=== PATIENT | male | born 1975 | race Caucasian/White ===

== ENCOUNTER 2018-04-17 21:59 | Inpatient (IN) | payer OTHER ==
[2018-04-17] MEDS: SODIUM CHLORIDE 0.9% 1L BAG IV* (22:50)
[2018-04-17] MEDS: ONDANSETRON 4 MG INJ IV (22:50)
[2018-04-17 22:52] LABS: WHITE BLOOD COUNT 27.6 10^3/ul (4.8-10.8)
[2018-04-17 22:52] LABS: ABNORMAL IP MESSAGE 1; HEMATOCRIT 48.8 % (42.0-52.0); HEMOGLOBIN 16.5 g/dl (14.0-18.0); MEAN CORPUSCULAR HEMOGLOBIN 32.3 pg (29.0-33.0); MEAN CORPUSCULAR HGB CONC 33.8 g/dl (32.0-37.0); MEAN CORPUSCULAR VOLUME 95.5 fl (82.0-101.0); MEAN PLATELET VOLUME 10.6 fl (7.4-10.4); PLATELET COUNT 395 10^3/UL (140-415); POSITIVE DIFF @See below; RED BLOOD COUNT 5.11 10^6/ul (4.70-6.10); RED CELL DISTRIBUTION WIDTH 13.1 % (11.5-14.5)
[2018-04-17 23:11] LABS: INR 0.94; PROTIME 12.7 Sec (11.9-14.9)
[2018-04-17 23:12] LABS: PARTIAL THROMBOPLASTIN TIME 27.9 Sec (25.0-35.0)
[2018-04-17 23:13] LABS: ALANINE AMINOTRANSFERASE 18 IU/L (13-69); ALBUMIN 5.2 g/dl (3.3-4.9); ALBUMIN/GLOBULIN RATIO 1.73; ALKALINE PHOSPHATASE 134 IU/L (42-121); ANION GAP 33 (8-16); ASPARTATE AMINO TRANSFERASE 36 IU/L (15-46); BILIRUBIN,INDIRECT 1.5 mg/dl (0-1.1); BILIRUBIN,TOTAL 1.5 mg/dl (0.2-1.3); BLOOD UREA NITROGEN 20 mg/dl (7-20); CALCIUM 9.7 mg/dl (8.4-10.2); CHLORIDE 103 mmol/L (97-110); CREATININE 1.08 mg/dl (0.61-1.24); POTASSIUM 5.3 mmol/L (3.5-5.1); SODIUM 139 mmol/L (135-144); TOTAL PROTEIN 8.2 g/dl (6.1-8.1)
[2018-04-17 23:14] LABS: ADD MAN DIFF? YES
[2018-04-17 23:18] LABS: CARBON DIOXIDE 8 mmol/L (21-31); GLUCOSE 548 mg/dl (70-220)
[2018-04-17] MEDS: morphine 2 MG INJ IV (23:22)
[2018-04-17 23:24] LABS: TROPONIN-I < 0.010 ng/ml (0.000-0.120)
[2018-04-17] MEDS: SOD CHLORIDE 0.9% 2,000 ML IV (23:40)
[2018-04-17 23:43] LABS: ADD UMIC NO; UR ASCORBIC ACID NEGATIVE (NEGATIVE); UR BILIRUBIN (Dip) NEGATIVE (NEGATIVE); UR BLOOD (Dip) NEGATIVE (NEGATIVE); UR CLARITY CLEAR (CLEAR); UR COLOR STRAW (YELLOW); UR GLUCOSE (Dip) 3+ mg/dL (NEGATIVE); UR KETONES (Dip) 2+ mg/dL (NEGATIVE); UR LEUKOCYTE ESTERASE (Dip) NEGATIVE Leu/ul (NEGATIVE); UR NITRITE (Dip) NEGATIVE (NEGATIVE); UR SPECIFIC GRAVITY (Dip) 1.016 (1.003-1.030); UR TOTAL PROTEIN (Dip) NEGATIVE (NEGATIVE); UR UROBILINOGEN (Dip) NEGATIVE (NEGATIVE)
[2018-04-17 23:50] LABS: LACTIC ACID 6.8 mmol/L (0.5-2.0)
[2018-04-18] MEDS: INSULIN HUMAN REGULAR 100 UNIT in SOD CHLORIDE 0.9% 99 ML IV ×2 (00:04→10:56)
[2018-04-18] MEDS: SODIUM CHLORIDE 0.9% 1L BAG IV* (00:10)
[2018-04-18] MEDS: CEFEPIME 2GM/50 ML (PMX) 50 ML IVPB (00:10)
[2018-04-18] MEDS: VANCOMYCIN 1 GM (PMX) 250 ML IVPB (00:19)
[2018-04-18] MEDS: KETOROLAC 30 MG INJ IV (00:49)
[2018-04-18 01:06] LABS: LACTIC ACID 5.2 mmol/L (0.5-2.0)
[2018-04-18] MEDS ORDERED: DEXTROSE 50% 50 ML SYRINGE IV ×2 (01:30)
[2018-04-18] MEDS ORDERED: VANCOMYCIN IV PER PHARMACY XX (01:30)
[2018-04-18] MEDS ORDERED: morphine 2 MG INJ IV (01:30)
[2018-04-18] MEDS ORDERED: ONDANSETRON 4 MG INJ IV (01:30)
[2018-04-18] MEDS: ACCU-CHEK XX ×25 (01:30→22:36)
[2018-04-18] MEDS: SOD CHLORIDE 0.9% 1,000 ML IV ×2 (01:45→03:05)
[2018-04-18] MEDS: SOD CHLORIDE 0.9% 100 ML ×2 (01:47→02:01)
[2018-04-18] MEDS: IOHEXOL 300MG/ML 150 ML BTL ×2 (01:47→02:00)
[2018-04-18 02:07] LABS: ALANINE AMINOTRANSFERASE 23 IU/L (13-69); ALBUMIN 3.6 g/dl (3.3-4.9); ALBUMIN/GLOBULIN RATIO 1.38; ALKALINE PHOSPHATASE 87 IU/L (42-121); ANION GAP 20 (8-16); ASPARTATE AMINO TRANSFERASE 25 IU/L (15-46); BLOOD UREA NITROGEN 19 mg/dl (7-20); CALCIUM 7.4 mg/dl (8.4-10.2); CARBON DIOXIDE 10 mmol/L (21-31); CHLORIDE 118 mmol/L (97-110); GLUCOSE 340 mg/dl (70-220); POTASSIUM 4.8 mmol/L (3.5-5.1); SODIUM 143 mmol/L (135-144); TOTAL PROTEIN 6.2 g/dl (6.1-8.1)
[2018-04-18 02:29] LABS: BASOPHIL #M 0.2 10^3/ul (0.0-0.0); BASOPHILS % (M) 1 % (0-2); GIANT THROMBO% (M) 2 % (0-0); LYMPHOCYTES #M 1.6 10^3/ul (0.8-2.9); LYMPHOCYTES % (M) 6 % (15-51); MONOCYTE #M 3.8 10^3/ul (0.3-0.9); MONOCYTES % (M) 14 % (0-11); PLATELET ESTIMATE NORMAL; POIKILOCYTOSIS 1+ (0-0); SEGMENTED NEUTROPHILS (M) % 79 % (39-77); SMUDGE%M 12 % (0-0)
[2018-04-18 02:44] LABS: HEMOGLOBIN A1C 6.6 % (0-5.9)
[2018-04-18 02:56] LABS: C-REACTIVE PROTEIN < 0.5 mg/dl (0.0-0.9)
[2018-04-18] MEDS: DEXTROSE 5%-0.45% NACL 1,000 ML IV ×2 (04:02→11:47)
[2018-04-18 04:21] LABS: PHOSPHORUS 3.6 mg/dl (2.5-4.9)
[2018-04-18 04:21] LABS: GLUCOSE, FASTING 336 mg/dl (70-110)
[2018-04-18] MEDS: PIPER-TAZO 3.375 GM IV (PMX) 100 ML IVPB ×3 (05:34→18:58)
[2018-04-18] MEDS: PANTOPRAZOLE 40 MG INJ IV (05:34)
[2018-04-18 06:02] LABS: LACTIC ACID 1.3 mmol/L (0.5-2.0)
[2018-04-18 06:07] LABS: CREATINE KINASE 131 IU/L (23-200)
[2018-04-18 06:13] LABS: ALANINE AMINOTRANSFERASE 25 IU/L (13-69); ALBUMIN 3.1 g/dl (3.3-4.9); ALBUMIN/GLOBULIN RATIO 1.24; ALKALINE PHOSPHATASE 63 IU/L (42-121); ANION GAP 14 (8-16); ASPARTATE AMINO TRANSFERASE 19 IU/L (15-46); BLOOD UREA NITROGEN 18 mg/dl (7-20); CALCIUM 7.7 mg/dl (8.4-10.2); CARBON DIOXIDE 15 mmol/L (21-31); CHLORIDE 117 mmol/L (97-110); CREATININE 0.85 mg/dl (0.61-1.24); GLUCOSE 198 mg/dl (70-220); POTASSIUM 4.4 mmol/L (3.5-5.1); SODIUM 142 mmol/L (135-144); TOTAL PROTEIN 5.6 g/dl (6.1-8.1)
[2018-04-18 06:39] LABS: HEMOGLOBIN A1C 6.7 % (0-5.9)
[2018-04-18] MEDS: VANCOMYCIN 1.25 GM in SOD CHLORIDE 0.9% 250 ML IVPB ×2 (08:53→21:06)
[2018-04-18 10:44] LABS: ALANINE AMINOTRANSFERASE 30 IU/L (13-69); ALBUMIN 2.9 g/dl (3.3-4.9); ALBUMIN/GLOBULIN RATIO 1.11; ALKALINE PHOSPHATASE 59 IU/L (42-121); ANION GAP 12 (8-16); ASPARTATE AMINO TRANSFERASE 21 IU/L (15-46); BILIRUBIN,INDIRECT 1.8 mg/dl (0-1.1); BILIRUBIN,TOTAL 1.8 mg/dl (0.2-1.3); BLOOD UREA NITROGEN 18 mg/dl (7-20); CALCIUM 7.7 mg/dl (8.4-10.2); CARBON DIOXIDE 17 mmol/L (21-31); CHLORIDE 117 mmol/L (97-110); CREATININE 0.77 mg/dl (0.61-1.24); GLUCOSE 110 mg/dl (70-220); POTASSIUM 3.9 mmol/L (3.5-5.1); SODIUM 142 mmol/L (135-144); TOTAL PROTEIN 5.5 g/dl (6.1-8.1)
[2018-04-18 10:46] LABS: LACTIC ACID 1.1 mmol/L (0.5-2.0)
[2018-04-18] MEDS ORDERED: VANCOMYCIN 1.25 GM in SOD CHLORIDE 0.9% 250 ML IVPB (12:00)
[2018-04-18 12:43] LABS: ALANINE AMINOTRANSFERASE 30 IU/L (13-69); ALBUMIN/GLOBULIN RATIO 1.07; ALKALINE PHOSPHATASE 60 IU/L (42-121); ANION GAP 12 (8-16); ASPARTATE AMINO TRANSFERASE 24 IU/L (15-46); BILIRUBIN,INDIRECT 2.1 mg/dl (0-1.1); BILIRUBIN,TOTAL 2.1 mg/dl (0.2-1.3); BLOOD UREA NITROGEN 18 mg/dl (7-20); CALCIUM 7.6 mg/dl (8.4-10.2); CARBON DIOXIDE 17 mmol/L (21-31); CHLORIDE 116 mmol/L (97-110); CREATININE 0.75 mg/dl (0.61-1.24); GLUCOSE 93 mg/dl (70-220); POTASSIUM 3.8 mmol/L (3.5-5.1); SODIUM 141 mmol/L (135-144); TOTAL PROTEIN 5.8 g/dl (6.1-8.1)
[2018-04-18] MEDS: POTASSIUM CHLORIDE 40 MEQ in DEXTROSE 5%-0.225% NACL 1,000 ML IV (14:40)
[2018-04-18] MEDS: POTASSIUM CHLORIDE IV (17:28)
[2018-04-18] MEDS: ACETAMINOPHEN 650MG/20.3ML CUP PO (17:31)
[2018-04-18] MEDS: INSULIN ASPART [NOVOLOG] 3 ML PEN SC ×2 (20:21→23:20)
[2018-04-18 20:23] LABS: ALANINE AMINOTRANSFERASE 30 IU/L (13-69); ALBUMIN 3.4 g/dl (3.3-4.9); ALBUMIN/GLOBULIN RATIO 1.36; ALKALINE PHOSPHATASE 69 IU/L (42-121); ANION GAP 18 (8-16); ASPARTATE AMINO TRANSFERASE 31 IU/L (15-46); BILIRUBIN,INDIRECT 1.9 mg/dl (0-1.1); BILIRUBIN,TOTAL 1.9 mg/dl (0.2-1.3); BLOOD UREA NITROGEN 15 mg/dl (7-20); CALCIUM 7.9 mg/dl (8.4-10.2); CARBON DIOXIDE 13 mmol/L (21-31); CHLORIDE 112 mmol/L (97-110); CREATININE 0.81 mg/dl (0.61-1.24); GLUCOSE 302 mg/dl (70-220); POTASSIUM 4.5 mmol/L (3.5-5.1); SODIUM 138 mmol/L (135-144); TOTAL PROTEIN 5.9 g/dl (6.1-8.1)
[2018-04-19] MEDS: PIPER-TAZO 3.375 GM IV (PMX) 100 ML IVPB ×3 (00:30→12:00)
[2018-04-19] MEDS: POTASSIUM CHLORIDE IV (02:17)
[2018-04-19] MEDS: ACCU-CHEK XX ×10 (02:18→14:00)
[2018-04-19 05:31] LABS: ADD MAN DIFF? NO
[2018-04-19] MEDS: PANTOPRAZOLE 40 MG INJ IV (05:33)
[2018-04-19] MEDS: ACETAMINOPHEN 650MG/20.3ML CUP PO (05:36)
[2018-04-19 05:45] LABS: ABNORMAL IP MESSAGE 1; BASOPHIL # 0.1 10^3/ul (0.0-0.1); BASOPHILS % 0.5 % (0.0-2.0); EOSINOPHILS # 0.2 10^3/ul (0.0-0.5); EOSINOPHILS % 0.8 % (0.0-7.0); HEMATOCRIT 38.7 % (42.0-52.0); HEMOGLOBIN 13.1 g/dl (14.0-18.0); LYMPHOCYTES # 3.2 10^3/ul (0.8-2.9); LYMPHOCYTES % 16.4 % (15.0-51.0); MEAN CORPUSCULAR HEMOGLOBIN 31.5 pg (29.0-33.0); MEAN CORPUSCULAR HGB CONC 33.9 g/dl (32.0-37.0); MEAN PLATELET VOLUME 10.5 fl (7.4-10.4); MONOCYTE # 1.8 10^3/ul (0.3-0.9); MONOCYTES % 9.5 % (0.0-11.0); NEUTROPHILS % 72.3 % (39.0-77.0); PLATELET COUNT 307 10^3/UL (140-415); POSITIVE DIFF @See below; RED BLOOD COUNT 4.16 10^6/ul (4.70-6.10); RED CELL DISTRIBUTION WIDTH 13.7 % (11.5-14.5)
[2018-04-19 05:45] LABS: WHITE BLOOD COUNT 19.4 10^3/ul (4.8-10.8)
[2018-04-19 06:46] LABS: PHOSPHORUS 1.1 mg/dl (2.5-4.9)
[2018-04-19] MEDS ORDERED: POTASSIUM CHLORIDE 40 MEQ in DEXTROSE 5%-0.225% NACL 1,000 ML IV ×2 (08:00→10:00)
[2018-04-19] MEDS ORDERED: INSULIN HUMAN REGULAR 100 UNIT in SOD CHLORIDE 0.9% 99 ML IV (08:00)
[2018-04-19] MEDS: POTASSIUM PHOSPHATE 40 MEQ in SOD CHLORIDE 0.9% 250 ML IVPB (08:39)
[2018-04-19] MEDS: VANCOMYCIN 1.25 GM in SOD CHLORIDE 0.9% 250 ML IVPB (08:52)
[2018-04-19] MEDS ORDERED: PHENOL 1.4% SOLN 180 ML BTL MT (15:00)
[2018-04-19 16:01] LABS: CREATININE, RANDOM URINE 28 mg/dL (20-370); MICROALBUMIN 0.2 mg/dL; MICROALBUMIN/CREATININE RATIO 7 (<30)
[2018-04-20 15:41] LABS: CREATININE, RANDOM URINE 16 mg/dL (20-370); MICROALBUMIN <0.2 mg/dL; MICROALBUMIN/CREATININE RATIO NOTE (<30)
[2018-05-15 14:03] LABS: TSH RECEPTOR ANTIBODY <1 (< OR = 16)
== END 2018-04-19 15:00 | disposition home or self-care (01) | DRG 871 ==
LOC: E/R 21:59 → ICU 04-18 01:01
PROVIDERS: Family Medicine
DX: A41.9 Sepsis, unspecified organism (principal); E10.10 Type 1 diabetes mellitus with ketoacidosis without coma; F17.210 Nicotine dependence, cigarettes, uncomplicated; K52.9 Noninfective gastroenteritis and colitis, unspecified; E80.6 Other disorders of bilirubin metabolism; E86.0 Dehydration; J02.0 Streptococcal pharyngitis; Z79.4 Long term (current) use of insulin
CPT/HCPCS: 36415; 71045; 74178; 80053; 81003; 82043; 82550; 82947; 82962; 83036; 83605; 84100; 84145; 84235; 84484; 85025; 85610; 85651; 85730; 86140; 87040; 87081; 87086; 93005; 96361; 96374; 96375; 99291-25